=== PATIENT | male | born 1980 | race Caucasian/White ===

== ENCOUNTER 2017-04-02 13:53 | Inpatient (IN) | payer MEDICAID ==
[2017-04-02] MEDS ORDERED: Sulfamethoxazole/TMP 800/160mg Tab PO ONE (14:38)
[2017-04-02] MEDS ORDERED: Sulfamethoxazole/TMP 800/160mg Tab ONE (14:41)
--- NOTE | 2017-04-02 15:02 | ED Physician Chart ---
Chief Complaint/HPI - Patient Information Date Seen:: 04/02/17 Time Seen:: 14:00 Chief Complaint:: LEFT FOREARM ABSCESS History of Present Illness:: THIS IS A 36 YO MALE WHO IS CONCERNED ABOUT AN ABSCESS ON HIS LEFT FOREARM THAT STARTED TWO DAYS AGO. HE DENIES ALL OTHER MEDICAL PROBLEMS. HE ADMITS TO THC ABUSE. HE DENIES FEVER AND VOMITING. Allergies:: Allergies Allergy/AdvReac Type Severity Reaction Status Date / Time No Known Allergies Allergy Verified 04/02/17 13:57 Vitals:: Vital Signs - 8 hr 04/02/17 13:57 HR 95 RR 16 BP 147/93 O2 Sat % 99 Historian:: Patient Review:: Nurse's Note Reviewed Review of Systems - Review of Systems General/Constitutional: No fever, No chills, No weight loss, No weakness, No diaphoresis, No edema, No loss of appetite Skin: Skin lesions (THERE IS AN ABSCESS ON THE LEFT FOREARM), No rash, No bruising Head: No headache, No light-headedness Eyes: No loss of vision, No pain, No diplopia ENT: No earache, No nasal drainage, No sore throat, No tinnitus Neck: No neck pain, No swelling, No thyromegaly, No stiffness, No mass noted Cardio Vascular: No chest pain, No palpitations, No PND, No orthopnea, No edema Pulmonary: No SOB, No cough, No sputum, No wheezing GI: No nausea, No vomiting, No diarrhea, No pain, No melena, No hematochezia, No constipation, No hematemesis G/U: No dysuria, No frequency, No hematuria Musculoskeletal: No bone or joint pain, No back pain, No muscle pain Endocrine: No polyuria, No polydipsia Psychiatric: No prior psych history, No depression, No anxiety, No suicidal ideation Hematopoietic: No bruising, No lymphadenopathy Allergic/Immuno: No urticaria, No angioedema Neurological: No syncope, No focal symptoms, No weakness, No paresthesia, No headache, No seizure, No dizziness, No confusion, No vertigo Past Medical History - Past Medical History Obtainable: Yes Past Medical History: No significant medical hx Family History: None Social History: Smoker, No Alcohol, Illicit Drug Use Surgical History: other (SPEENECTOMY) Physical Exam - Physical Examination General/Constitutional: Awake, Well-developed, well-nourished, Alert, No distress, GCS 15, Non-toxic appearing, Ambulatory Head: Atraumatic Eyes: Lids, conjuctiva normal, PERRL, EOMI Skin: No rash, No ecchymosis, Well hydrated, No lymphadenopathy Other Skin comments:: THERE IS A 6 CM RED, TENDER,WARM AND SWOLLEN AREA OF THE LEFT FOREARM. ENMT: External ears, nose nl, Nasal exam nl, Lips, teeth, gums nl Neck: Nontender, Full ROM w/o pain, No JVD, No nuchal rigidity, No bruit, No mass, No stridor Respiratory: Nl effort/Exclusion, Clear to Auscultation, No Wheeze/Rhonchi/Rales Cardio Vascular: RRR, No murmur, gallop, rubs, NL S1 S2 GI: No tenderness/rebounding/guarding, No organomegaly, No hernia, Normal BS's, Nondistended, No mass/bruits, No McBurney tenderness : No CVA tenderness Extremities: No tenderness or effusion, Full ROM, normal strength in all extremities, No edema, Normal digits & nails Neuro/Psych: Alert/oriented, DTR's symmetric, Normal sensory exam, Normal motor strength, Judgement/insight normal, Mood normal, Normal gait, No focal deficits Misc: normal gait, Normal back, No paraspinal tenderness Labs/Radiology/EKG Results - Lab Results Results: Abnormal Lab Results 04/02/17 04/02/17 04/02/17 15:07 15:07 15:07 WBC 26.0 H* RBC 4.96 Hgb 15.3 Hct 46.1 MCV 92.8 MCH 30.9 H MCHC Differential 33.2 RDW 14.0 Plt Count 489 H MPV 7.8 Neutrophils (Manual) 83 H Lymphocytes 11 L Monocytes 6 Platelet Estimate INCREASED PLATELETS Platelet Morphology NORMAL RBC Morph Micro Appear NORMAL Sodium 134 L Potassium 3.8 Chloride 103 Carbon Dioxide 23.1 Anion Gap 11.7 BUN 7 Creatinine 0.8 Est GFR ( Amer) > 60.0 Est GFR (Non-Af Amer) > 60.0 BUN/Creatinine Ratio 8.8 Glucose 112 H Calcium 9.4 Total Bilirubin 0.8 AST 18 ALT 12 Alkaline Phosphatase 87 Troponin I 0.04 Total Protein 7.1 Albumin 4.3 Globulin 2.8 Albumin/Globulin Ratio 1.5 - EKG Interpretations EKG Time:: 15:48 Rate & Rhythm: RATE= 98 SINUS [place]: RIGHT Assessment - Assessment General Assessment: ABSCESS OF THE LEFT FOREARM ED Septic Shock - . Is Septic Shock (SBP<90, OR Lactate>4 mmol\L) present?: No - <6hrs of presentation: Vital Signs: Vital Signs - 8 hr 04/02/17 13:57 HR 95 RR 16 BP 147/93 O2 Sat % 99 Reassessment (Disposition) - Reassessment Reassessment Condition:: Improved - Diagnosis Diagnosis:: ABSCESS OF THE LEFT FOREARM - Patient Disposition Discharge/Transfer:: Acute Care w/in this hosp Admitting Medical Physician:: Alen Munoz Condition at Disposition:: Improved ED Discharge Plan - Patient Disposition Admit/Discharge/Transfer: Acute Care w/in this hosp Condition at Disposition: Improved
[2017-04-02 15:17] LABS: HEMATOCRIT 46.1 % (39.0-49.0); HEMOGLOBIN 15.3 gm/dL (13.2-17.3); MEAN CELL VOLUME 92.8 fl (80-99); MEAN CORPUSCULAR HEMOGLOBIN 30.9 pg (26.0-30.0); MEAN CORPUSCULAR HGB CONC 33.2 pg (28.0-36.0); MEAN PLATELET VOLUME 7.8 fl; PLATELET COUNT 489 Th/cmm (150-400); RED BLOOD COUNT 4.96 Mil/cmm (4.30-5.70)
[2017-04-02 15:33] LABS: ALB/GLOB RATIO 1.5 (1.0-1.8); ALKALINE PHOSPHATASE 87 U/L (34-104); ANION GAP 11.7 (7.0-16.0); BILIRUBIN,TOTAL 0.8 mg/dL (0.3-1.0); BUN - UREA NITROGEN 7 mg/dL (7-25); BUN/CREATININE RATIO 8.8; CALCIUM SERUM 9.4 mg/dL (8.6-10.3); CARBON DIOXIDE 23.1 mEq/L (21.0-31.0); CHLORIDE 103 mEq/L (98-107); CREATININE - SERUM 0.8 mg/dL (0.7-1.3); GLUCOSE 112 mg/dL (70-105); POTASSIUM SERUM 3.8 mEq/L (3.5-5.1); SGOT 18 U/L (13-39); SGPT/ALT 12 U/L (7-52); SODIUM SERUM 134 mEq/L (136-145)
[2017-04-02 15:34] LABS: NEUTROPHILS 83 % (40-80); PLATELET ESTIMATE INCREASED PLATELETS (NORMAL); PLATELET MORPHOLOGY NORMAL (NORMAL); TOTAL CELLS COUNTED 100
[2017-04-02] MEDS ORDERED: Sodium Chloride 0.9% 1,000 ML IV ONE (15:42)
[2017-04-02 16:17] LABS: URINE BILIRUBIN NEGATIVE (NEGATIVE); URINE BLOOD NEGATIVE (NEGATIVE); URINE GLUCOSE (UA) NEGATIVE (NEGATIVE); URINE KETONE NEGATIVE (NEGATIVE); URINE PH 6.5 (4.6 - 8.0); URINE PROTEIN NEGATIVE (NEGATIVE); URINE UROBILINOGEN 0.2 E.U./dL (0.2 - 1.0)
[2017-04-02 16:26] LABS: URINE COLOR YELLOW
[2017-04-02 16:29] LABS: AMPHETAMINE URINE POSITIVE (NEGATIVE); BARBITURATES URINE NEGATIVE (NEGATIVE); METHADONE URINE NEGATIVE (NEGATIVE)
[2017-04-02 16:35] LABS: URINE BACTERIA NONE SEEN /hpf (NONE SEEN); URINE EPITHELIAL CELLS NONE SEEN /lpf (FEW); URINE RBC NONE SEEN /hpf (0-5); URINE WBC NONE SEEN /hpf (0-5)
[2017-04-02] MEDS ORDERED: Acetaminophen 500 MG TAB ONE (16:44)
[2017-04-02] MEDS ORDERED: Acetaminophen 500 MG TAB PO ONE (16:47)
[2017-04-02] MEDS ORDERED: Hydrocodone/APAP 5mg/325mg Tab PO PRN (19:40)
[2017-04-02] MEDS ORDERED: Maalox 30 mL Cup PO PRN (19:40)
[2017-04-02] MEDS ORDERED: Magnesium Hydroxide (MOM) 30 mL UDC PO PRN (19:40)
[2017-04-03 06:10] LABS: HEMATOCRIT 43.9 % (39.0-49.0); HEMOGLOBIN 14.9 gm/dL (13.2-17.3); MEAN CELL VOLUME 92.6 fl (80-99); MEAN CORPUSCULAR HEMOGLOBIN 31.4 pg (26.0-30.0); MEAN CORPUSCULAR HGB CONC 33.9 pg (28.0-36.0); MEAN PLATELET VOLUME 8.3 fl; NEUTROPHILE ABSOLUTE 39.2 Th/cmm (1.8-8.0); PLATELET COUNT 495 Th/cmm (150-400); RED BLOOD COUNT 4.74 Mil/cmm (4.30-5.70); RED CELL DISTRIBUTION WIDTH 13.8 % (11.5-20.0)
[2017-04-03 06:39] LABS: ANION GAP 11.3 (7.0-16.0); BUN - UREA NITROGEN 10 mg/dL (7-25); BUN/CREATININE RATIO 12.5; CARBON DIOXIDE 24.8 mEq/L (21.0-31.0); CHLORIDE 102 mEq/L (98-107); CREATININE - SERUM 0.8 mg/dL (0.7-1.3); GLUCOSE 114 mg/dL (70-105); POTASSIUM SERUM 4.1 mEq/L (3.5-5.1); SODIUM SERUM 134 mEq/L (136-145)
[2017-04-03 07:54] LABS: WHITE BLOOD COUNT 46.2 Th/cmm (4.8-10.8)
[2017-04-03 08:27] LABS: HEMATOCRIT 46.5 % (39.0-49.0); HEMOGLOBIN 15.7 gm/dL (13.2-17.3); MEAN CELL VOLUME 93.6 fl (80-99); MEAN CORPUSCULAR HEMOGLOBIN 31.5 pg (26.0-30.0); MEAN CORPUSCULAR HGB CONC 33.7 pg (28.0-36.0); MEAN PLATELET VOLUME 7.9 fl; NEUTROPHILE ABSOLUTE 38.1 Th/cmm (1.8-8.0); PLATELET COUNT 485 Th/cmm (150-400); RED BLOOD COUNT 4.97 Mil/cmm (4.30-5.70)
[2017-04-03 08:36] LABS: BAND NEUTROPHILE 5 % (0-10); NEUTROPHILS 83 % (40-80); TOTAL CELLS COUNTED 100
[2017-04-03 08:37] LABS: EOSINOPHIL 1 % (0-5)
[2017-04-03 08:56] LABS: WHITE BLOOD COUNT 45.2 Th/cmm (4.8-10.8)
[2017-04-03 09:13] LABS: NEUTROPHILS 78 % (40-80); TOTAL CELLS COUNTED 100
[2017-04-03 09:14] LABS: BAND NEUTROPHILE 7 % (0-10)
--- NOTE | 2017-04-03 10:25 | Diagnostic Imaging Report ---
Portable chest x-ray History: Cough Allowing for portable technique the heart size is normal. No focal pulmonary parenchymal processes. No hilar or mediastinal abnormalities. Impression: No acute abnormalities.
[2017-04-03] MEDS: D5-0.45NS 1,000 ML IV SCH (11:53)
--- NOTE | 2017-04-03 12:48 | Diagnostic Imaging Report ---
Left elbow (3 views) No definite acute bony abnormalities. No fractures. Joint spaces appear normal. There is partial visualization of an orthopedic fixation plate within the distal shaft of the radius. IMPRESSION: 1. No acute focal bony abnormalities 2. Surgical changes within the distal radial shaft
--- NOTE | 2017-04-03 13:00 | History & Physical ---
ADMIT DATE: 04/02/2017 CHIEF COMPLAINT: Left forearm abscess. HISTORY OF PRESENT ILLNESS: The patient is 36-year-old white male who presented to ER complaining of abscess on left forearm that started 2 days ago. The patient denies other complaints. The patient does admit to marijuana abuse. ALLERGIES: No known allergies. MEDICATIONS: See medication reconciliation form. PAST MEDICAL HISTORY: Marijuana abuse. PAST SURGICAL HISTORY: ____. SOCIAL HISTORY: Positive tobacco use, positive marijuana abuse. Denies alcohol or IV drug use. REVIEW OF SYSTEMS: See history of present illness. PHYSICAL EXAMINATION: GENERAL: The patient is awake, alert, nontoxic in appearance. VITAL SIGNS: On admission, temperature is 101.1, pulse of 101, blood pressure was 147/99, respirations 18, and O2 sat 96% on room air. HEENT: Normocephalic, atraumatic. Extraocular movements are intact. Pupils are PERRLA. Oropharynx is clear. NECK: Supple, no thyromegaly. CARDIOVASCULAR: S1, S2, tachycardic. RESPIRATORY: Clear. No wheezes or rhonchi. GASTROINTESTINAL: Soft, nontender, nondisplaced. GENITOURINARY: No CVA tenderness, no suprapubic tenderness. BACK: No midline tenderness. EXTREMITIES: Equal pulses bilaterally. No cyanosis or edema. SKIN: The patient has an abscess present on his left forearm, which is 6 cm in size, red, tender, warm, and swollen. PSYCHIATRIC: Negative. NEUROLOGIC: Cranial nerves intact. Extraocular movements are intact. Sensation intact. Neurovascular is intact. Bilateral upper and lower muscles grossly normal. LABORATORY DATA: Hematology: WBC 26, hemoglobin is 15.3, hematocrit 46.1, platelet count of 489, 82% neutrophils, 11% lymphocytes. Chemistry: Sodium 134, potassium 3.8, chloride 103, bicarbonate 23, anion gap 11, BUN 7, creatinine 0.8, GFR is more than 60. Glucose 112, lactic acid 2.22, calcium 9.4, total bili 0.8, AST is 18, ALT is 12, alkaline phosphatase 87. Troponin 0.04, total protein 7.1, albumin 4.3, globulin 2.8, TSH is 2.66. Urinalysis negative. Urine drug screen is positive for amphetamines, methamphetamines and cannabinoids. RPR, nonreactive. Microbiology culture results pending. RADIOLOGY: Chest x-ray from 04/03 shows no acute abnormalities. IMPRESSION: 1. Sepsis. 2. Left forearm cellulitis. 3. History of splenectomy. 4. Leukocytosis. 5. Thrombocytosis. 6. Hyponatremia. 7. Hyperglycemia. 8. Lactic acidosis. 9. Amphetamine abuse. 10. Methamphetamine abuse. 11. Cannabinoids abuse. PLAN: The patient admitted to medical/surgical unit, seen by Dr. Radha Munoz. Infectious Disease consultation, Dr. Dionicio Canales. We will obtain further labs and consultations as needed. JOB# [id number]
[2017-04-03] MEDS: Clindamycin 600mg/50mL 600 MG/50 ML BAG IV SCH ×2 (13:40→22:30)
--- NOTE | 2017-04-03 15:20 | General Progress Note ---
Subjective - Review of Systems Service Date: 04/03/17 Events since last encounter: inflamed, swollen left upper ext for 5 days due to spider bite??? (a month?) Plan: MRI, I and D Objective - Results Result Diagrams: 04/03/17 08:17 04/03/17 05:35 Recent Labs: Laboratory Last Values WBC 45.2 Th/cmm (4.8-10.8) H* 04/03/17 08:17 RBC 4.97 Mil/cmm (4.30-5.70) 04/03/17 08:17 Hgb 15.7 gm/dL (13.2-17.3) 04/03/17 08: Hct 46.5 % (39.0-49.0) 04/03/17 08: MCV 93.6 fl (80-99) 04/03/17 08:17 MCH 31.5 pg (26.0-30.0) H 04/03/17 08:17 MCHC Differential 33.7 pg (28.0-36.0) 04/03/17 08:17 RDW 14.0 % (11.5-20.0) 04/03/17 08:17 Plt Count 485 Th/cmm (150-400) H 04/03/17 08:17 MPV 7.9 fl 04/03/17 08:17 Band Neutrophils % 7 % (0-10) 04/03/17 08:17 Neutrophils (Manual) 78 % (40-80) 04/03/17 08:17 Lymphocytes 10 % (20-50) L 04/03/17 08:17 Monocytes 5 % (2-10) 04/03/17 08:17 Eosinophils 1 % (0-5) 04/03/17 05:35 Platelet Estimate INCREASED PLATELETS (NORMAL) 04/02/17 15:07 Platelet Morphology NORMAL (NORMAL) 04/02/17 15:07 RBC Morph Micro Appear NORMAL (NORMAL) 04/02/17 15:07 Sodium 134 mEq/L (136-145) L 04/03/17 05:35 Potassium 4.1 mEq/L (3.5-5.1) 04/03/17 05:35 Chloride 102 mEq/L (98-107) 04/03/17 05:35 Carbon Dioxide 24.8 mEq/L (21.0-31.0) 04/03/17 05:35 Anion Gap 11.3 (7.0-16.0) 04/03/17 05:35 BUN 10 mg/dL (7-25) 04/03/17 05:35 Creatinine 0.8 mg/dL (0.7-1.3) 04/03/17 05:35 Est GFR ( Amer) > 60.0 ml/min (>90) 04/03/17 05:35 Est GFR (Non-Af Amer) > 60.0 ml/min 04/03/17 05:35 BUN/Creatinine Ratio 12.5 04/03/17 05:35 Glucose 114 mg/dL (70-105) H 04/03/17 05:35 Whole Bld Lactic Acid 2.22 mmol/L (0.60-1.99) H* 04/02/17 17:41 Calcium 9.0 mg/dL (8.6-10.3) 04/03/17 05:35 Total Bilirubin 0.8 mg/dL (0.3-1.0) 04/02/17 15:07 AST 18 U/L (13-39) 04/02/17 15:07 ALT 12 U/L (7-52) 04/02/17 15:07 Alkaline Phosphatase 87 U/L (34-104) 04/02/17 15:07 Troponin I 0.04 ng/mL (0.01-0.05) 04/02/17 15:07 Total Protein 7.1 gm/dL (6.0-8.3) 04/02/17 15:07 Albumin 4.3 gm/dL (4.2-5.5) 04/02/17 15:07 Globulin 2.8 gm/dL 04/02/17 15:07 Albumin/Globulin Ratio 1.5 (1.0-1.8) 04/02/17 15:07 TSH 2.66 uIU/ml (0.34-5.60) 04/02/17 15:07 Urine Source CLEAN C 04/02/17 15:00 Urine Color YELLOW 04/02/17 15:00 Urine Clarity CLEAR (CLEAR) 04/02/17 15:00 Urine pH 6.5 (4.6 - 8.0) 04/02/17 15:00 Ur Specific [place] <= 1.005 (1.005-1.030) 04/02/17 15:00 Urine Protein NEGATIVE mg/dL (NEGATIVE) 04/02/17 15:00 Urine Glucose (UA) NEGATIVE mg/dL (NEGATIVE) 04/02/17 15:00 Urine Ketones NEGATIVE mg/dL (NEGATIVE) 04/02/17 15:00 Urine Blood NEGATIVE (NEGATIVE) 04/02/17 15:00 Urine Nitrate NEGATIVE (NEGATIVE) 04/02/17 15:00 Urine Bilirubin NEGATIVE (NEGATIVE) 04/02/17 15:00 Urine Urobilinogen 0.2 E.U./dL (0.2 - 1.0) 04/02/17 15:00 Ur Leukocyte Esterase NEGATIVE (NEGATIVE) 04/02/17 15:00 Urine RBC NONE SEEN /hpf (0-5) 04/02/17 15:00 Urine WBC NONE SEEN /hpf (0-5) 04/02/17 15:00 Ur Epithelial Cells NONE SEEN /lpf (FEW) 04/02/17 15:00 Urine Bacteria NONE SEEN /hpf (NONE SEEN) 04/02/17 15:00 Urine Opiates Screen NEGATIVE (NEGATIVE) 04/02/17 05:00 Urine Methadone Screen NEGATIVE (NEGATIVE) 04/02/17 05:00 Ur Barbiturates Screen NEGATIVE (NEGATIVE) 04/02/17 05:00 Ur Tricyclics Screen NEGATIVE (NEGATIVE) 04/02/17 05:00 Ur Phencyclidine Scrn NEGATIVE (NEGATIVE) 04/02/17 05:00 Amphetamines Screen POSITIVE (NEGATIVE) H 04/02/17 05:00 U Methamphetamines Scrn POSITIVE (NEGATIVE) H 04/02/17 05:00 U Benzodiazepines Scrn NEGATIVE (NEGATIVE) 04/02/17 05:00 U Cocaine Metab Screen NEGATIVE (NEGATIVE) 04/02/17 05:00 U Cannabinoids Screen POSITIVE (NEGATIVE) H 04/02/17 05:00 RPR NONREACTIVE (NONREACTIVE) 04/02/17 15:07 - Physical Exam Vitals and I&O: Vital Signs Temp 98.1 F 04/03/17 12:00 Pulse 93 04/03/17 12:00 Resp 18 04/03/17 12:00 BP 108/54 04/03/17 12:00 Pulse Ox 100 04/03/17 12:00 Intake & Output 04/02/17 04/03/17 04/03/17 18:59 06:59 18:59 Intake Total 1400 Balance 1400 Weight (lbs) 66.678 kg Intake: Intake, IV Amount 500 Vancomycin HCl 1 gm In 500 Sodium Chloride 0.9% 250 ml @ 165 mls/hr IV Q8H [facility] Rx#:[id number] Oral 400 Other 500 Other: # Voids 1 Active Medications: Current Medications Acetaminophen (Tylenol) 650 mg PO Q4H PRN PRN Reason: Pain or Fever >101 Stop: 06/01/17 18:14 Last Admin: 04/03/17 08:17 Dose: 650 mg Acetaminophen/Hydrocodone Bitart (Victor 10 Mg/325 Mg) 1 tab PO Q6H PRN PRN Reason: Pain (Severe) Stop: 06/01/17 19:39 Acetaminophen/Hydrocodone Bitart (Victor 5mg/325mg) 1 tab PO Q6H PRN PRN Reason: Moderate Pain Stop: 06/01/17 19:39 Al Hydrox/Mg Hydrox/Simethicone (Maalox) 30 ml PO Q6H PRN PRN Reason: Dyspepsia Stop: 06/01/17 19:39 Dextrose/Sodium Chloride (D5-0.45ns) 1,000 mls @ 100 mls/hr IV .Q10H ANH Stop: 06/01/17 18:15 Last Admin: 04/03/17 11:53 Dose: 100 mls/hr Cefepime HCl 1 gm/ Sodium (Chloride) 50 mls @ 100 mls/hr IV Q12H ANH Stop: 06/02/17 12:59 Clindamycin Phosphate (Cleocin Pb) 600 mg in 50 mls @ 100 mls/hr IV Q8H ANH Stop: 06/02/17 13:59 Last Admin: 04/03/17 13:40 Dose: 100 mls/hr Vancomycin HCl 1.25 gm/ Sodium (Chloride) 250 mls @ 165 mls/hr IV Q8H ANH Stop: 06/02/17 16:59 Lorazepam (Ativan) 1 mg PO Q6H PRN; Protocol PRN Reason: Anxiety/Agitation Stop: 06/01/17 19:39 Magnesium Hydroxide (Milk Of Magnesia) 30 ml PO HS PRN PRN Reason: Constipation Stop: 06/01/17 19:39 Miscellaneous (Vancomycin Iv Per Pharmacy) 1 ea MC PRN ANH Stop: 06/01/17 18:44 Ondansetron HCl (Zofran Odt) 4 mg PO Q6H PRN PRN Reason: Nausea / Vomiting Stop: 06/01/17 19:39
[2017-04-03] MEDS ORDERED: cefTRIAXone 1 GM in Sodium Chloride 0.9% 50 ML IV SCH (16:00)
[2017-04-03] MEDS: Cefepime 1 GM in Sodium Chloride 0.9% 50 ML IV SCH (16:09)
[2017-04-03] MEDS ORDERED: Probiotic Screen MC PRN (17:24)
--- NOTE | 2017-04-03 18:47 | Consultation ---
DATE OF CONSULTATION: 04/02/2017 PRIMARY CARE PHYSICIAN: Dr. Alen Munoz. This is a 36-year-old male who was brought to the Emergency Room with a complaint of extensive left arm swelling and cellulitis. HISTORY OF PRESENT ILLNESS: The patient has a history of IV drug abuse and had a puncture lisha on the left forearm. The patient developed extensive cellulitis for the last 3 days and decided to come to the Emergency where the patient was found to have sepsis, infectious, and admitted to the hospital. Infectious consultation was called, antibiotics adjusted, and examined as soon as possible. PAST MEDICAL HISTORY: Cannabis abuse, opioid abuse, smoker. FAMILY HISTORY: Negative splenectomy. ALLERGIES: No allergies. REVIEW OF SYSTEMS: A 14-point review of systems is negative except the above. PHYSICAL EXAMINATION: GENERAL: Alert, awake, not in distress. VITAL SIGNS: Temperature, maximum temperature is 102.2, pulse 75, respirations 18, blood pressure 112/75. HEENT: Mild pallor, no icterus or plaque. NECK: Supple. LUNGS: Breath sounds bilateral vesicular. CARDIOVASCULAR: ____. ABDOMEN: Soft, bowel sounds present. EXTREMITIES: Left upper extremities has a puncture wound on the left forearm, with proximal and surrounding extensive cellulitis, tenderness, and rash. Pulses are palpable over all extremities. LABORATORY DATA: White count 26, 000, hemoglobin is 15 grams, platelets are 489. Cultures are pending. Also chest x-ray shows clear lung calderon. DIAGNOSIS: Left upper extremity cellulitis secondary to IV drug abuse, And Cannabis abuse. PLAN: The patient is started on vancomycin, Maxipime, and Clindamycin. Supportive care. Rest of the care as ordered in CPOE. Thank you, Dr. Munoz, for this consultation. JOB# [id number]
[2017-04-04] MEDS: Cefepime 1 GM in Sodium Chloride 0.9% 50 ML IV SCH ×2 (01:49→13:20)
[2017-04-04] MEDS: Hydrocodone/APAP 10 mg/325 mg Tab PO PRN (05:20)
[2017-04-04] MEDS: Clindamycin 600mg/50mL 600 MG/50 ML BAG IV SCH ×3 (05:20→21:37)
[2017-04-04 06:20] LABS: HEMOGLOBIN 14.7 gm/dL (13.2-17.3)
[2017-04-04 06:22] LABS: HEMATOCRIT 44.1 % (39.0-49.0); MEAN CELL VOLUME 92.9 fl (80-99); MEAN CORPUSCULAR HGB CONC 33.3 pg (28.0-36.0); MEAN PLATELET VOLUME 8.2 fl; NEUTROPHILE ABSOLUTE 27.9 Th/cmm (1.8-8.0); PLATELET COUNT 484 Th/cmm (150-400); RED BLOOD COUNT 4.74 Mil/cmm (4.30-5.70); RED CELL DISTRIBUTION WIDTH 13.9 % (11.5-20.0)
[2017-04-04 07:15] LABS: ANION GAP 11.3 (7.0-16.0); BUN - UREA NITROGEN 8 mg/dL (7-25); BUN/CREATININE RATIO 11.4; CALCIUM SERUM 9.8 mg/dL (8.6-10.3); CARBON DIOXIDE 24.7 mEq/L (21.0-31.0); CHLORIDE 101 mEq/L (98-107); CREATININE - SERUM 0.7 mg/dL (0.7-1.3); GLUCOSE 98 mg/dL (70-105); SODIUM SERUM 133 mEq/L (136-145)
[2017-04-04 07:21] LABS: WHITE BLOOD COUNT 34.3 Th/cmm (4.8-10.8)
[2017-04-04 07:23] LABS: TOTAL CELLS COUNTED 100
[2017-04-04 07:24] LABS: BAND NEUTROPHILE 4 % (0-10); NEUTROPHILS 75 % (40-80)
[2017-04-04 07:25] LABS: EOSINOPHIL 3 % (0-5)
--- NOTE | 2017-04-04 08:04 | Diagnostic Imaging Report ---
Left upper extremity extremity DVT study HISTORY: Swelling, abscess COMPARISON: None Technique: Longitudinal and transverse sonographic images of the left upper extremity veins were obtained with doppler analysis. FINDINGS: There is patency of the left jugular, subclavian, axillary, brachial, basilic, and cephalic veins. Compressibility and augmentation is demonstrated with no evidence of DVT formation. IMPRESSION: No evidence of thrombus within the left upper extremity veins.
[2017-04-04] MEDS: Lactobacillus Rhamnosus 10 Billion CFU Capsule PO SCH (08:09)
--- NOTE | 2017-04-04 08:29 | Diagnostic Imaging Report ---
Left upper extremity arterial Doppler study HISTORY: Swelling COMPARISON: None Technique: Longitudinal and transverse sonographic images of the left upper extremity arteries were obtained with doppler analysis. FINDINGS: There is patency of the left subclavian axillary, brachial, radial, ulnar veins. Triphasic and biphasic flow is primarily demonstrated with mild chronic vascular disease noted. IMPRESSION: Mild atherosclerotic vascular disease of the left upper extremity. No evidence of hemodynamic significant stenosis.
[2017-04-04] MEDS ORDERED: Midazolam 1mg/ml 2 ml vial IV ONE (12:04)
[2017-04-04] MEDS ORDERED: fentaNYL Citrate 100 mcg/2mL Vial ONE (12:04)
[2017-04-04] MEDS: D5-0.45NS 1,000 ML IV SCH (13:19)
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
--- NOTE | 2017-04-04 14:46 | Operative Report ---
DATE OF SURGERY: 04/04/2017 PREOPERATIVE DIAGNOSES: 1. Abscess, left forearm. 2. Status post splenectomy. 3. History of drug use. POSTOPERATIVE DIAGNOSES: 1. Abscess, left forearm. 2. Status post splenectomy. 3. History of drug use. OPERATION DONE: 1. Incision and drainage of abscess, left forearm. 2. Placement of Palmer-Rendon drain. SURGEON: Alejandro Del Toro M.D. ANESTHESIA: MAC. ANESTHESIOLOGIST: Vamshi Desai M.D. ESTIMATED BLOOD LOSS: None. INDICATIONS FOR SURGERY: The patient who claimed he had spider bite 3 days got worse and 2 days later, required emergency admission. WBC is extremely high. Ultrasound including venous and arterial studies did not show any DVT and/or arterial deficit. Informed consent was discussed with the patient regarding possible indications, possible complications that might include additional incision and drainage, increase in infection that might involve the fascia and effect the circulation. So far, the patient's sensation and motion to the fingers appear to be normal. DETAILS OF PROCEDURE: The patient was given IV sedation. The left upper extremity was prepped with Betadine and draped. At the site of the bite, which was necrotic, incision was made. Thick purulent material was aspirated and cultures taken. Probe was inserted into the space to break down any loculations, following which a Palmer-Rendon drain was inserted and secured in place. The patient tolerated the procedure well. JOB# [id number] MTDD
[2017-04-05] MEDS: Cefepime 1 GM in Sodium Chloride 0.9% 50 ML IV SCH ×2 (00:22→12:41)
--- NOTE | 2017-04-05 04:12 | Admit Criteria Form ---
Admit Criteria Forms - Admit Criteria Diagnosis: SKIN AND WOUND CARE Clinical Indications for Inpatient Care (Place 'X' for any and all applicable criteria): Ongoing inpatient care may be indicated for skin complications with 1 or more of the following [ ]I. Hemodynamic Instability((2)(8)(9)(28)(42)(43)(44) [ ]II. Dehydration that is severe or persistent [ ]III. Severe pain requiring acute inpatient management [ ]IV. Inpatient treatment needed as indicated by 1 or more of the following: Pressure ulcer closure procedures [ ] i. Skin grafting(45) [ ]ii. Opthalmic surgical procedure (eg amniotic membrane grafting) [ ]iii. Serial ocular examinations [ ]iv. Wound debridement [ ]v. Dressing change under general anesthesia [ ]vi. Diverting colostomy [ ]vii. Intravenous immunosuppressant therapy [ ]V. Significant burn as indicated by 1 or more of the following [ ]i. Full thickness burn greater than 10% of body surface area [ ]ii. Any burn greater than 15% of body surface area [ ]iii. Serious burn of hand, foot, genitals, face or joint [ ]iv. Burn accompanied by other significant medical problems or injuries (eg altered mental [ ]v. status, arrhythmia, inability to maintain oral hydration, significant wound) [ ]vi. Serious chemical burn [ ]vii. High voltage (e.g. 1000 volts or more) electrical burn [ ]viii. Circumferential burn [X ] . Skin infection requiring inpatient care as indicated by ALL of the following: [X ]a) Infection suspected as indicated by 1 or more of the following: [ ] i. Excessive drainage [X ]ii. Pus [ ]iii. Increased redness [ ]iv. Foul Odor [ ]v. Fever [X ]b) Clinically significant infection as indicated by 1 or more of the following: [ ]i. Vital signs abnormality [ ]ii. Persistantly high temperatures greater than 103.1 degrees F (39.5degrees C)(Oral) [X ]iii. Unexplained metabolic acidosis (eg lactic acidosis) [ ]iv. Evidence of end organ dysfunction (eg rising creatinine, myocardial ischemia, liver function tests) [ ]v. Hypoxemia [ ]vi. Tachypnea [ ]vii. Altered mental status [ ]viii. Dehydration that is severe or persistent Extended stay beyond goal length of stay for primary condition may be needed until ALL of the following are present(1)(2)(13)(21)(27): [ ]a) Hemodynamic instability [ ]b) Volume status acceptable [ ]c) Mental status at baseline [ ]d) Tissue necrosis absent or treatment plan manageable at lower level of care [ ]e) Fever absent or temperature as expected for disease process and acceptable for next level of care [ ]f) Hypoxemia present [ ]g) Tachypnea present [ ]h) Fistulas, tunneling, or underlying deep tissue infection absent or treated [ ]i) Purulence and tissue breakdown absent or improved [ ]j) Ulcer surgical repair absent or healing without complications [ ]k) Wound infection absent or manageable at lower level of care [ ]l) Comorbidities absent or manageable at lower level of care The original [facility] [employer] content created by [facility] has been revised. The portions of the content which have been revised are identified through the use of italic text or in bold, and [facility] has neither reviewed nor approved the modified material. All other unmodified content is copyright [facility]. Please see references footnoted in the original [facility] edition 2017 Admit Criteria Met?: Yes
[2017-04-05] MEDS: Hydrocodone/APAP 10 mg/325 mg Tab PO PRN (05:32)
[2017-04-05 06:17] LABS: HEMATOCRIT 43.2 % (39.0-49.0); HEMOGLOBIN 14.5 gm/dL (13.2-17.3); MEAN CELL VOLUME 93.1 fl (80-99); MEAN CORPUSCULAR HEMOGLOBIN 31.2 pg (26.0-30.0); MEAN CORPUSCULAR HGB CONC 33.5 pg (28.0-36.0); MEAN PLATELET VOLUME 8.1 fl; PLATELET COUNT 534 Th/cmm (150-400); RED BLOOD COUNT 4.64 Mil/cmm (4.30-5.70); RED CELL DISTRIBUTION WIDTH 13.6 % (11.5-20.0)
[2017-04-05 06:27] LABS: WHITE BLOOD COUNT 18.2 Th/cmm (4.8-10.8)
[2017-04-05 06:33] LABS: ALB/GLOB RATIO 1.2 (1.0-1.8); ALKALINE PHOSPHATASE 87 U/L (34-104); ANION GAP 9.4 (7.0-16.0); BILIRUBIN,TOTAL 0.5 mg/dL (0.3-1.0); BUN - UREA NITROGEN 11 mg/dL (7-25); BUN/CREATININE RATIO 18.3; CALCIUM SERUM 9.4 mg/dL (8.6-10.3); CARBON DIOXIDE 27.3 mEq/L (21.0-31.0); CHLORIDE 101 mEq/L (98-107); CREATININE - SERUM 0.6 mg/dL (0.7-1.3); GLUCOSE 88 mg/dL (70-105); POTASSIUM SERUM 3.7 mEq/L (3.5-5.1); SGOT 30 U/L (13-39); SGPT/ALT 33 U/L (7-52); SODIUM SERUM 134 mEq/L (136-145)
[2017-04-05 06:56] LABS: BAND NEUTROPHILE 7 % (0-10); EOSINOPHIL 1 % (0-5); NEUTROPHILS 66 % (40-80); TOTAL CELLS COUNTED 100
[2017-04-05] MEDS: Clindamycin 600mg/50mL 600 MG/50 ML BAG IV SCH ×3 (07:00→21:42)
[2017-04-05 07:34] LABS: % EOSINOPHILS 4.7 % (0.0-5.0); % LYMPHOCYTES 15.8 % (20.0-50.0); % NEUTROPHILS 69.5 % (40.0-80.0); NEUTROPHILE ABSOLUTE 12.8 Th/cmm (1.8-8.0)
--- NOTE | 2017-04-05 09:15 | General Progress Note ---
Subjective - Review of Systems Service Date: 04/05/17 Events since last encounter: WBC down, swelling upper arm down pain and tenderness is less minimal YUMIKO drainage patient to go home with drain Objective - Results Result Diagrams: 04/05/17 05:54 04/05/17 05:54 Recent Labs: Laboratory Last Values WBC 18.2 Th/cmm (4.8-10.8) H D 04/05/17 05:54 RBC 4.64 Mil/cmm (4.30-5.70) 04/05/17 05:54 Hgb 14.5 gm/dL (13.2-17.3) 04/05/17 05:54 Hct 43.2 % (39.0-49.0) 04/05/17 05:54 MCV 93.1 fl (80-99) 04/05/17 05:54 MCH 31.2 pg (26.0-30.0) H 04/05/17 05:54 MCHC Differential 33.5 pg (28.0-36.0) 04/05/17 05:54 RDW 13.6 % (11.5-20.0) 04/05/17 05:54 Plt Count 534 Th/cmm (150-400) H 04/05/17 05:54 MPV 8.1 fl 04/05/17 05:54 Neutrophils % 69.5 % (40.0-80.0) 04/05/17 05:54 Band Neutrophils % 7 % (0-10) 04/05/17 05:54 Lymphocytes % 15.8 % (20.0-50.0) L 04/05/17 05:54 Monocytes % 10.0 % (2.0-10.0) 04/05/17 05:54 Eosinophils % 4.7 % (0.0-5.0) 04/05/17 05:54 Basophils % 0.0 % (0.0-2.0) 04/05/17 05:54 Neutrophils (Manual) 66 % (40-80) 04/05/17 05:54 Lymphocytes 23 % (20-50) 04/05/17 05:54 Monocytes 4 % (2-10) 04/05/17 05:54 Eosinophils 1 % (0-5) 04/05/17 05:54 Platelet Estimate INCREASED PLATELETS (NORMAL) 04/02/17 15:07 Platelet Morphology NORMAL (NORMAL) 04/02/17 15:07 RBC Morph Micro Appear NORMAL (NORMAL) 04/02/17 15:07 ESR 21 mm/hr (0-20) H 04/04/17 05:49 Sodium 134 mEq/L (136-145) L 04/05/17 05:54 Potassium 3.7 mEq/L (3.5-5.1) 04/05/17 05:54 Chloride 101 mEq/L (98-107) 04/05/17 05:54 Carbon Dioxide 27.3 mEq/L (21.0-31.0) 04/05/17 05:54 Anion Gap 9.4 (7.0-16.0) 04/05/17 05:54 BUN 11 mg/dL (7-25) 04/05/17 05:54 Creatinine 0.6 mg/dL (0.7-1.3) L 04/05/17 05:54 Est GFR ( Amer) > 60.0 ml/min (>90) 04/05/17 05:54 Est GFR (Non-Af Amer) > 60.0 ml/min 04/05/17 05:54 BUN/Creatinine Ratio 18.3 04/05/17 05:54 Glucose 88 mg/dL (70-105) 04/05/17 05:54 Whole Bld Lactic Acid 2.22 mmol/L (0.60-1.99) H* 04/02/17 17:41 Calcium 9.4 mg/dL (8.6-10.3) 04/05/17 05:54 Total Bilirubin 0.5 mg/dL (0.3-1.0) 04/05/17 05:54 AST 30 U/L (13-39) 04/05/17 05:54 ALT 33 U/L (7-52) 04/05/17 05:54 Alkaline Phosphatase 87 U/L (34-104) 04/05/17 05:54 Troponin I 0.04 ng/mL (0.01-0.05) 04/02/17 15:07 C-Reactive Protein 24.9 mg/dL (0.0-0.9) H 04/04/17 05:49 Total Protein 6.6 gm/dL (6.0-8.3) 04/05/17 05:54 Albumin 3.6 gm/dL (4.2-5.5) L 04/05/17 05:54 Globulin 3.0 gm/dL 04/05/17 05:54 Albumin/Globulin Ratio 1.2 (1.0-1.8) 04/05/17 05:54 TSH 2.66 uIU/ml (0.34-5.60) 04/02/17 15:07 Urine Source CLEAN C 04/02/17 15:00 Urine Color YELLOW 04/02/17 15:00 Urine Clarity CLEAR (CLEAR) 04/02/17 15:00 Urine pH 6.5 (4.6 - 8.0) 04/02/17 15:00 Ur Specific [place] <= 1.005 (1.005-1.030) 04/02/17 15:00 Urine Protein NEGATIVE mg/dL (NEGATIVE) 04/02/17 15:00 Urine Glucose (UA) NEGATIVE mg/dL (NEGATIVE) 04/02/17 15:00 Urine Ketones NEGATIVE mg/dL (NEGATIVE) 04/02/17 15:00 Urine Blood NEGATIVE (NEGATIVE) 04/02/17 15:00 Urine Nitrate NEGATIVE (NEGATIVE) 04/02/17 15:00 Urine Bilirubin NEGATIVE (NEGATIVE) 04/02/17 15:00 Urine Urobilinogen 0.2 E.U./dL (0.2 - 1.0) 04/02/17 15:00 Ur Leukocyte Esterase NEGATIVE (NEGATIVE) 04/02/17 15:00 Urine RBC NONE SEEN /hpf (0-5) 04/02/17 15:00 Urine WBC NONE SEEN /hpf (0-5) 04/02/17 15:00 Ur Epithelial Cells NONE SEEN /lpf (FEW) 04/02/17 15:00 Urine Bacteria NONE SEEN /hpf (NONE SEEN) 04/02/17 15:00 Vancomycin Trough 16.8 ug/mL (10-20) 04/04/17 16:19 Urine Opiates Screen NEGATIVE (NEGATIVE) 04/02/17 05:00 Urine Methadone Screen NEGATIVE (NEGATIVE) 04/02/17 05:00 Ur Barbiturates Screen NEGATIVE (NEGATIVE) 04/02/17 05:00 Ur Tricyclics Screen NEGATIVE (NEGATIVE) 04/02/17 05:00 Ur Phencyclidine Scrn NEGATIVE (NEGATIVE) 04/02/17 05:00 Amphetamines Screen POSITIVE (NEGATIVE) H 04/02/17 05:00 U Methamphetamines Scrn POSITIVE (NEGATIVE) H 04/02/17 05:00 U Benzodiazepines Scrn NEGATIVE (NEGATIVE) 04/02/17 05:00 U Cocaine Metab Screen NEGATIVE (NEGATIVE) 04/02/17 05:00 U Cannabinoids Screen POSITIVE (NEGATIVE) H 04/02/17 05:00 RPR NONREACTIVE (NONREACTIVE) 04/02/17 15:07 - Physical Exam Vitals and I&O: Vital Signs Temp 97.6 F 04/05/17 04:00 Pulse 68 04/05/17 04:00 Resp 18 04/05/17 04:00 BP 105/67 04/05/17 04:00 Pulse Ox 97 04/05/17 04:00 Intake & Output 04/04/17 04/05/17 04/05/17 18:59 06:59 18:59 Intake Total 600 2450 Output Total 5 425 Balance 595 2025 Weight (lbs) 66.769 kg Intake: Intake, IV Amount 600 350 Cefepime 1 gm In Sodium 50 50 Chloride 0.9% 50 ml @ 100 mls/hr IV Q12H [facility] Rx#: [id number] Clindamycin 600mg/50mL 50 50 600 mg In 50 ml @ 100 mls /hr IV Q8H [facility] Rx#: [id number] Vancomycin HCl 1.25 gm In 500 250 Sodium Chloride 0.9% 250 ml @ 165 mls/hr IV Q8H [facility] Rx#:[id number] Oral 2100 Output: Drainage 5 25 Left Arm 5 25 Urine 400 Other: # Voids 5 # Bowel Movements 0 Stool Characteristics Formed Brown Active Medications: Current Medications Acetaminophen (Tylenol) 650 mg PO Q4H PRN PRN Reason: Pain or Fever >101 Stop: 06/01/17 18:14 Last Admin: 04/03/17 15:47 Dose: 650 mg Acetaminophen/Hydrocodone Bitart ([place] 10 Mg/325 Mg) 1 tab PO Q6H PRN PRN Reason: Pain (Severe) Stop: 06/01/17 19:39 Last Admin: 04/05/17 05:32 Dose: 1 tab Acetaminophen/Hydrocodone Bitart ([place] 5mg/325mg) 1 tab PO Q6H PRN PRN Reason: Moderate Pain Stop: 06/01/17 19:39 Al Hydrox/Mg Hydrox/Simethicone (Maalox) 30 ml PO Q6H PRN PRN Reason: Dyspepsia Stop: 06/01/17 19:39 Dextrose/Sodium Chloride (D5-0.45ns) 1,000 mls @ 100 mls/hr IV .Q10H ANH Stop: 06/01/17 18:15 Last Admin: 04/04/17 13:19 Dose: 100 mls/hr Cefepime HCl 1 gm/ Sodium (Chloride) 50 mls @ 100 mls/hr IV Q12H ANH Stop: 06/02/17 12:59 Last Infusion: 04/05/17 02:14 Dose: Infused Clindamycin Phosphate (Cleocin Pb) 600 mg in 50 mls @ 100 mls/hr IV Q8H ANH Stop: 06/02/17 13:59 Last Admin: 04/05/17 07:00 Dose: 100 mls/hr Vancomycin HCl 1.25 gm/ Sodium (Chloride) 250 mls @ 165 mls/hr IV Q8H ANH Stop: 06/02/17 16:59 Last Infusion: 04/05/17 02:14 Dose: Infused Lactobacillus Rhamnosus (Culturelle) 1 each PO DAILY ANH Stop: 06/03/17 08:59 Last Admin: 04/04/17 08:09 Dose: Not Given Lorazepam (Ativan) 1 mg PO Q6H PRN; Protocol PRN Reason: Anxiety/Agitation Stop: 06/01/17 19:39 Magnesium Hydroxide (Milk Of Magnesia) 30 ml PO HS PRN PRN Reason: Constipation Stop: 06/01/17 19:39 Miscellaneous (Vancomycin Iv Per Pharmacy) 1 ea MC PRN ANH Stop: 06/01/17 18:44 Miscellaneous (Probiotic Screen) 1 ea PRN PRN PRN Reason: PROTOCOL Stop: 06/02/17 17:23 Ondansetron HCl (Zofran Odt) 4 mg PO Q6H PRN PRN Reason: Nausea / Vomiting Stop: 06/01/17 19:39 - Procedures Procedures: Procedures Procedure Code Date DRAINAGE OF LEFT LOWER ARM, OPEN APPROACH [id number] 04/02/17 DRAINAGE OF SKIN ABSCESS 60955 04/02/17 Nutritional Asmnt/Malnutr-PDOC - Dietary Evaluation Malnutrition Findings (Please click <Entered> for more info): Nutritional Asmnt/Malnutrition Start: 04/04/17 13: 05 Text: Status: Complete Freq: Document 04/04/17 13:06 MARLENE (Rec: 04/04/17 13:25 [email or web address]) Nutritional Asmnt/Malnutrition Patient General Information Nutritional Screening Consult Diagnosis Sepsis, left forearm cellulitis, leukocytosis, thrombocytosis Pertinent Medical Hx/Surgical Hx Splenectomy, amphetamine abuse , methamphetamine abuse, cannabinoid abuse Subjective Information 36 year old male from home. Spoke to pt sitting outside in courtyard smoking a cigarrete . No nutritional concerns at this time. Pt was NPO during visit for surgery. Pt report UBW 155-165lb, has always been small frame, no recent weight changes, good appetite. Avg PO itnake 100% of meals yesterday. Teeth intact. Ambulatory. Current Diet Order/ Nutrition Support Regular Pertinent Medications D5-0.45ns, Culturelle, MOM, Vancomycin, Zofran Pertinent Labs Reviewed. Nutritional Hx/Data Height 1.85 m Height (Calculated Centimeters) 185.4 Current Weight (lbs) 66.678 kg Weight (Calculated Kilograms) 66.7 Weight (Calculated Grams) 69626.1 [place] Body Weight 184 Recent Weight Change No Weight Status Approriate GI Symptoms Skin Integrity/Comment: Bin 23. Wound care 04/03: right forearm abscess, left erythematous and solitario Current %PO Good (75-100%) Estimated Nutritional Goals BEE in Kcals: Using Current wt Calories/Kcals/Kg CBW 147lb/66.8kg Kcals Calculated 1670-2004kcal (25-30kcla/kg) Protein: Using Current wt Protein Calculated 53-67g (0.8-1g/kg) Fluid: ml 1670-2004ml (1ml/kcal) Nutritional Problem 1. Problem Problem No nutritional problem at this time. Intervention/Recommendation Comments 1. Continue with current diet order. Avg PO intake is adequate. Expected Outcomes/Goals Expected Outcomes/Goals 1. PO intake to meet at least 75% of estimated nutritional needs.
[2017-04-05] MEDS: Lactobacillus Rhamnosus 10 Billion CFU Capsule PO SCH (09:48)
[2017-04-05] MEDS: D5-0.45NS 1,000 ML IV SCH (12:43)
[2017-04-06] MEDS: Cefepime 1 GM in Sodium Chloride 0.9% 50 ML IV SCH ×2 (01:03→13:06)
[2017-04-06] MEDS: Clindamycin 600mg/50mL 600 MG/50 ML BAG IV SCH ×2 (05:03→15:00)
[2017-04-06 07:32] LABS: % EOSINOPHILS 6.8 % (0.0-5.0); % LYMPHOCYTES 21.2 % (20.0-50.0); % MONOCYTES 8.7 % (2.0-10.0); % NEUTROPHILS 59.3 % (40.0-80.0); HEMATOCRIT 42.8 % (39.0-49.0); HEMOGLOBIN 14.1 gm/dL (13.2-17.3); MEAN CELL VOLUME 92.6 fl (80-99); MEAN CORPUSCULAR HEMOGLOBIN 30.6 pg (26.0-30.0); MEAN PLATELET VOLUME 7.7 fl; PLATELET COUNT 586 Th/cmm (150-400); RED BLOOD COUNT 4.62 Mil/cmm (4.30-5.70); RED CELL DISTRIBUTION WIDTH 13.7 % (11.5-20.0)
[2017-04-06 07:34] LABS: WHITE BLOOD COUNT 10.2 Th/cmm (4.8-10.8)
[2017-04-06 08:03] LABS: ANION GAP 8.7 (7.0-16.0); BUN - UREA NITROGEN 10 mg/dL (7-25); BUN/CREATININE RATIO 16.7; CALCIUM SERUM 9.3 mg/dL (8.6-10.3); CARBON DIOXIDE 29.3 mEq/L (21.0-31.0); CHLORIDE 103 mEq/L (98-107); CREATININE - SERUM 0.6 mg/dL (0.7-1.3); GLUCOSE 88 mg/dL (70-105); SODIUM SERUM 137 mEq/L (136-145)
[2017-04-06] MEDS: Lactobacillus Rhamnosus 10 Billion CFU Capsule PO SCH (08:22)
[2017-04-06] MEDS: Hydrocodone/APAP 10 mg/325 mg Tab PO PRN (08:22)
[2017-04-06] MEDS: D5-0.45NS 1,000 ML IV SCH (08:26)
--- NOTE | 2017-04-06 10:39 | Progress Notes ---
DATE: 04/05/2017 SUBJECTIVE: The patient is awake, alert. The patient is on IV antibiotics. The patient is scheduled for surgery on left forearm. OBJECTIVE: VITAL SIGNS: Temperature 99, pulse 93, blood pressure 133/75, respiratory rate 18, O2 sat 98% on room air. CARDIOVASCULAR: S1 and S2. RESPIRATORY: Clear. ABDOMEN: Soft. Positive bowel sounds. LABORATORY DATA: Hematology: WBC 34.3, hemoglobin 14.7, hematocrit 44.1, platelet count 484, ESR 21. Chemistries: Sodium 133, potassium 4.0, chloride 101, bicarbonate 24, anion gap 11, BUN 8, creatinine 0.7, GFR more than 60, glucose 98, calcium 9.8, C-reactive protein 24.9. Microbiology: Blood culture from 04/02/2017 pending. MRSA screen from 04/02/2017 negative. Left forearm wound culture from 04/02/2017 shows Staph aureus. Blood culture from 04/03/2017 shows no growth. Left arm abscess culture from 04/04/2017 pending. ASSESSMENT: 1. Sepsis. 2. Left forearm abscess secondary to Staph aureus. 3. Leukocytosis. 4. Thrombocytosis. 5. Hyponatremia. 6. Amphetamine abuse. 7. ____ abuse. 8. History of splenectomy. PLAN: Continue current medication. Obtain labs in a.m. The patient scheduled for surgery today. Further consult. JOB# [id number]
--- NOTE | 2017-04-06 13:19 | Progress Notes ---
DATE: 04/05/2017 SUBJECTIVE: The patient is awake and alert. The patient is on IV antibiotics. The patient underwent I and D of his forearm yesterday. OBJECTIVE: VITAL SIGNS: Temperature 97.6, pulse 68, blood pressure 105/57, respiratory rate 18, O2 sat 98% on room air. CARDIOVASCULAR: S1 and S2. RESPIRATORY: Clear. ABDOMEN: Soft. Positive bowel sounds. LABORATORY DATA: Hematology: WBC 18.2, hemoglobin 14.5, hematocrit 43.2, platelet count of 534. 15% lymphocytes. Chemistry: Sodium 134, potassium 3.7, chloride 101, bicarbonate 27, anion gap 9.4, BUN 11, creatinine 0.6. GFR is more than 60. Glucose of 88, calcium is 9.4. Total bilirubin 0.5, AST 30, ALT 33, alkaline phosphatase 87. Total protein 6.6, albumin 3.6, globulin 3.0. MICROBIOLOGY: Blood culture from 04/02/2017 shows no growth. MRSA screen from 04/02/2017 negative. Left forearm wound culture from 04/02/2017 shows Staphylococcus Aureus. ____ 04/02/2017 pending and left forearm wound culture from 04/04/2017 pending. RADIOLOGY: Ultrasound of left upper extremity shows mild atherosclerotic vascular disease, left upper extremity. No evidence of significant stenosis. Lower extremity shows no evidence of DVT. PLAN: Continue current medications and treatment. Obtain labs a.m. Awaiting culture results. Continue inpatient wound care. Further consults. JOB# [id number]
--- NOTE | 2017-04-06 17:17 | General Progress Note ---
Subjective - Review of Systems Service Date: 04/06/17 Events since last encounter: YUMIKO drainage 5 cc overnight and today 5 cc DC on antibiotics to see me in 1 week for removal of drain Objective - Results Result Diagrams: 04/06/17 07:20 04/06/17 07:20 Recent Labs: Laboratory Last Values WBC 10.2 Th/cmm (4.8-10.8) D 04/06/17 07:20 RBC 4.62 Mil/cmm (4.30-5.70) 04/06/17 07:20 Hgb 14.1 gm/dL (13.2-17.3) 04/06/17 07:20 Hct 42.8 % (39.0-49.0) 04/06/17 07:20 MCV 92.6 fl (80-99) 04/06/17 07:20 MCH 30.6 pg (26.0-30.0) H 04/06/17 07:20 MCHC Differential 33.0 pg (28.0-36.0) 04/06/17 07:20 RDW 13.7 % (11.5-20.0) 04/06/17 07:20 Plt Count 586 Th/cmm (150-400) H 04/06/17 07:20 MPV 7.7 fl 04/06/17 07:20 Neutrophils % 59.3 % (40.0-80.0) 04/06/17 07:20 Band Neutrophils % 7 % (0-10) 04/05/17 05:54 Lymphocytes % 21.2 % (20.0-50.0) 04/06/17 07:20 Monocytes % 8.7 % (2.0-10.0) 04/06/17 07:20 Eosinophils % 6.8 % (0.0-5.0) H 04/06/17 07:20 Basophils % 4.0 % (0.0-2.0) H 04/06/17 07:20 Neutrophils (Manual) 66 % (40-80) 04/05/17 05:54 Lymphocytes 23 % (20-50) 04/05/17 05:54 Monocytes 4 % (2-10) 04/05/17 05:54 Eosinophils 1 % (0-5) 04/05/17 05:54 Platelet Estimate INCREASED PLATELETS (NORMAL) 04/02/17 15:07 Platelet Morphology NORMAL (NORMAL) 04/02/17 15:07 RBC Morph Micro Appear NORMAL (NORMAL) 04/02/17 15:07 ESR 25 mm/hr (0-20) H 04/06/17 07:20 Sodium 137 mEq/L (136-145) 04/06/17 07:20 Potassium 4.0 mEq/L (3.5-5.1) 04/06/17 07:20 Chloride 103 mEq/L (98-107) 04/06/17 07:20 Carbon Dioxide 29.3 mEq/L (21.0-31.0) 04/06/17 07:20 Anion Gap 8.7 (7.0-16.0) 04/06/17 07:20 BUN 10 mg/dL (7-25) 04/06/17 07:20 Creatinine 0.6 mg/dL (0.7-1.3) L 04/06/17 07:20 Est GFR ( Amer) > 60.0 ml/min (>90) 04/06/17 07:20 Est GFR (Non-Af Amer) > 60.0 ml/min 04/06/17 07:20 BUN/Creatinine Ratio 16.7 04/06/17 07:20 Glucose 88 mg/dL (70-105) 04/06/17 07:20 Whole Bld Lactic Acid 2.22 mmol/L (0.60-1.99) H* 04/02/17 17:41 Calcium 9.3 mg/dL (8.6-10.3) 04/06/17 07:20 Total Bilirubin 0.5 mg/dL (0.3-1.0) 04/05/17 05:54 AST 30 U/L (13-39) 04/05/17 05:54 ALT 33 U/L (7-52) 04/05/17 05:54 Alkaline Phosphatase 87 U/L (34-104) 04/05/17 05:54 Troponin I 0.04 ng/mL (0.01-0.05) 04/02/17 15:07 C-Reactive Protein 24.9 mg/dL (0.0-0.9) H 04/04/17 05:49 Total Protein 6.6 gm/dL (6.0-8.3) 04/05/17 05:54 Albumin 3.6 gm/dL (4.2-5.5) L 04/05/17 05:54 Globulin 3.0 gm/dL 04/05/17 05:54 Albumin/Globulin Ratio 1.2 (1.0-1.8) 04/05/17 05:54 TSH 2.66 uIU/ml (0.34-5.60) 04/02/17 15:07 Urine Source CLEAN C 04/02/17 15:00 Urine Color YELLOW 04/02/17 15:00 Urine Clarity CLEAR (CLEAR) 04/02/17 15:00 Urine pH 6.5 (4.6 - 8.0) 04/02/17 15:00 Ur Specific [place] <= 1.005 (1.005-1.030) 04/02/17 15:00 Urine Protein NEGATIVE mg/dL (NEGATIVE) 04/02/17 15:00 Urine Glucose (UA) NEGATIVE mg/dL (NEGATIVE) 04/02/17 15:00 Urine Ketones NEGATIVE mg/dL (NEGATIVE) 04/02/17 15:00 Urine Blood NEGATIVE (NEGATIVE) 04/02/17 15:00 Urine Nitrate NEGATIVE (NEGATIVE) 04/02/17 15:00 Urine Bilirubin NEGATIVE (NEGATIVE) 04/02/17 15:00 Urine Urobilinogen 0.2 E.U./dL (0.2 - 1.0) 04/02/17 15:00 Ur Leukocyte Esterase NEGATIVE (NEGATIVE) 04/02/17 15:00 Urine RBC NONE SEEN /hpf (0-5) 04/02/17 15:00 Urine WBC NONE SEEN /hpf (0-5) 04/02/17 15:00 Ur Epithelial Cells NONE SEEN /lpf (FEW) 04/02/17 15:00 Urine Bacteria NONE SEEN /hpf (NONE SEEN) 04/02/17 15:00 Vancomycin Trough 16.8 ug/mL (10-20) 04/04/17 16:19 Urine Opiates Screen NEGATIVE (NEGATIVE) 04/02/17 05:00 Urine Methadone Screen NEGATIVE (NEGATIVE) 04/02/17 05:00 Ur Barbiturates Screen NEGATIVE (NEGATIVE) 04/02/17 05:00 Ur Tricyclics Screen NEGATIVE (NEGATIVE) 04/02/17 05:00 Ur Phencyclidine Scrn NEGATIVE (NEGATIVE) 04/02/17 05:00 Amphetamines Screen POSITIVE (NEGATIVE) H 04/02/17 05:00 U Methamphetamines Scrn POSITIVE (NEGATIVE) H 04/02/17 05:00 U Benzodiazepines Scrn NEGATIVE (NEGATIVE) 04/02/17 05:00 U Cocaine Metab Screen NEGATIVE (NEGATIVE) 04/02/17 05:00 U Cannabinoids Screen POSITIVE (NEGATIVE) H 04/02/17 05:00 RPR NONREACTIVE (NONREACTIVE) 04/02/17 15:07 - Physical Exam Vitals and I&O: Vital Signs Temp 98.8 F 04/06/17 13:59 Pulse 86 04/06/17 13:59 Resp 18 04/06/17 13:59 BP 130/60 04/06/17 13:59 Pulse Ox 98 04/06/17 13:59 Intake & Output 04/05/17 04/06/17 04/06/17 18:59 06:59 18:59 Intake Total 2150.00 1300 50 Output Total 4 Balance 2146.00 1300 50 Weight (lbs) 66.763 kg 64.592 kg 64.41 kg Intake: Intake, IV Amount 650.00 1100 50 Cefepime 1 gm In Sodium 50 50 Chloride 0.9% 50 ml @ 100 mls/hr IV Q12H [facility] Rx#: [id number] Clindamycin 600mg/50mL 100 50 50 600 mg In 50 ml @ 100 mls /hr IV Q8H [facility] Rx#: [id number] D5-0.45NS 1,000 ml @ 100 1000 mls/hr IV .Q10H [facility] Rx#: [id number] Vancomycin HCl 1.25 gm In 500.00 Sodium Chloride 0.9% 250 ml @ 165 mls/hr IV Q8H [facility] Rx#:[id number] Oral 1500 200 Output: Drainage 4 Left Arm 4 Other: # Voids 4 3 # Bowel Movements 0 0 Stool Characteristics Formed Formed Brown Brown Active Medications: Current Medications Acetaminophen (Tylenol) 650 mg PO Q4H PRN PRN Reason: Pain or Fever >101 Stop: 06/01/17 18:14 Last Admin: 04/03/17 15:47 Dose: 650 mg Acetaminophen/Hydrocodone Bitart ([place] 10 Mg/325 Mg) 1 tab PO Q6H PRN PRN Reason: Pain (Severe) Stop: 06/01/17 19:39 Last Admin: 04/06/17 08:22 Dose: 1 tab Acetaminophen/Hydrocodone Bitart ([place] 5mg/325mg) 1 tab PO Q6H PRN PRN Reason: Moderate Pain Stop: 06/01/17 19:39 Al Hydrox/Mg Hydrox/Simethicone (Maalox) 30 ml PO Q6H PRN PRN Reason: Dyspepsia Stop: 06/01/17 19:39 Dextrose/Sodium Chloride (D5-0.45ns) 1,000 mls @ 100 mls/hr IV .Q10H [facility] Stop: 06/01/17 18:15 Last Admin: 04/06/17 08:26 Dose: 100 mls/hr Cefepime HCl 1 gm/ Sodium (Chloride) 50 mls @ 100 mls/hr IV Q12H [facility] Stop: 06/02/17 12:59 Last Admin: 04/06/17 13:06 Dose: 100 mls/hr Clindamycin Phosphate (Cleocin Pb) 600 mg in 50 mls @ 100 mls/hr IV Q8H [facility] Stop: 06/02/17 13:59 Last Admin: 04/06/17 15:00 Dose: 100 mls/hr Lactobacillus Rhamnosus (Culturelle) 1 each PO DAILY ANH Stop: 06/03/17 08:59 Last Admin: 04/06/17 08:22 Dose: 1 each Lorazepam (Ativan) 1 mg PO Q6H PRN; Protocol PRN Reason: Anxiety/Agitation Stop: 06/01/17 19:39 Magnesium Hydroxide (Milk Of Magnesia) 30 ml PO HS PRN PRN Reason: Constipation Stop: 06/01/17 19:39 Miscellaneous (Probiotic Screen) 1 ea MC PRN PRN PRN Reason: PROTOCOL Stop: 06/02/17 17:23 Ondansetron HCl (Zofran Odt) 4 mg PO Q6H PRN PRN Reason: Nausea / Vomiting Stop: 06/01/17 19:39 - Procedures Procedures: Procedures Procedure Code Date DRAINAGE OF L LOW ARM SUBCU/FASCIA, OPEN APPROACH [id number] 04/02/17 DRAINAGE OF SKIN ABSCESS 12199 04/02/17 Nutritional Asmnt/Malnutr-PDOC - Dietary Evaluation Malnutrition Findings (Please click <Entered> for more info): Nutritional Asmnt/Malnutrition Start: 04/04/17 13: 05 Text: Status: Complete Freq: Document 04/04/17 13:06 GSUN (Rec: 04/04/17 13:25 GSUN [email or web address]) Nutritional Asmnt/Malnutrition Patient General Information Nutritional Screening Consult Diagnosis Sepsis, left forearm cellulitis, leukocytosis, thrombocytosis Pertinent Medical Hx/Surgical Hx Splenectomy, amphetamine abuse , methamphetamine abuse, cannabinoid abuse Subjective Information 36 year old male from home. Spoke to pt sitting outside in courtyard smoking a cigarrete . No nutritional concerns at this time. Pt was NPO during visit for surgery. Pt report UBW 155-165lb, has always been small frame, no recent weight changes, good appetite. Avg PO itnake 100% of meals yesterday. Teeth intact. Ambulatory. Current Diet Order/ Nutrition Support Regular Pertinent Medications D5-0.45ns, Culturelle, MOM, Vancomycin, Zofran Pertinent Labs Reviewed. Nutritional Hx/Data Height 1.85 m Height (Calculated Centimeters) 185.4 Current Weight (lbs) 66.678 kg Weight (Calculated Kilograms) 66.7 Weight (Calculated Grams) 15831.1 [place] Body Weight 184 Recent Weight Change No Weight Status Approriate GI Symptoms Skin Integrity/Comment: Bin 23. Wound care 04/03: right forearm abscess, left erythematous and solitario Current %PO Good (75-100%) Estimated Nutritional Goals BEE in Kcals: Using Current wt Calories/Kcals/Kg CBW 147lb/66.8kg Kcals Calculated 1670-2004kcal (25-30kcla/kg) Protein: Using Current wt Protein Calculated 53-67g (0.8-1g/kg) Fluid: ml 1670-2004ml (1ml/kcal) Nutritional Problem 1. Problem Problem No nutritional problem at this time. Intervention/Recommendation Comments 1. Continue with current diet order. Avg PO intake is adequate. Expected Outcomes/Goals Expected Outcomes/Goals 1. PO intake to meet at least 75% of estimated nutritional needs.
--- NOTE | 2017-04-06 22:48 | Discharge Summary ---
DATE OF DISCHARGE: 04/06/2017 DISCHARGE DIAGNOSES: 1. Sepsis. 2. Left forearm consistent with abscess secondary to Staphylococcus aureus. 3. History of splenectomy. 4. Amphetamine abuse. 5. Methamphetamine abuse. 6. Cannabinoid abuse. HOSPITAL COURSE: The patient is a 36-year-old who presented to ER complaining left forearm abscess. The patient was admitted to Med/Surg unit. The patient was admitted having sepsis, left forearm cellulitis, history of splenectomy, leukocytosis, thrombocytosis, hyponatremia, hyperglycemia, lactic acidosis, amphetamine abuse, methamphetamine abuse and cannabinoid abuse. The patient was admitted to Med/Surg unit. Consultation obtained. Infectious Disease consultation was obtained from Dr. Dionicio Canales who recommended the patient to be placed on empiric coverage with vancomycin, Maxipime and clindamycin. General Surgery consultation was obtained from Dr. Del Toro. During the hospital course the patient underwent left upper extremity arterial ultrasound, which showed mild atherosclerotic vascular disease. No evidence of stenosis. The patient underwent left extremity vascular ultrasound, which was negative for DVT. The patient underwent I and D of the left forearm and placement of Palmer-Rendon drain on 04/02/2017. The patient responded well to IV antibiotics. The patient since then has no further draining from YUMIKO drain. The patient has been cleared by General Surgery for discharge home. Goff culture results on the patient stated only the left forearm cultures showed only Staphylococcus aureus. The patient was discharged home on clindamycin. The patient will be arranged for home health. The patient will follow up with his PCP. [facility]# [id number]
--- NOTE | 2017-04-07 19:37 | Progress Notes ---
DATE: 04/06/2017 SUBJECTIVE: The patient is awake, alert. The patient is on IV antibiotics. The patient received inpatient wound care. OBJECTIVE: VITAL SIGNS: Temperature is 98, pulse 71, blood pressure 128/58, respiratory rate 18, O2 sat 97% on room air. CARDIOVASCULAR: S1 and S2. RESPIRATORY: Clear. GASTROINTESTINAL: Soft. Positive bowel sounds. LABORATORY DATA: Hematology: WBC 10.2, hemoglobin 14.1, hematocrit 42.8, platelet count of 586. 6% eosinophils and 4% basophils. ESR is 25. Chemistry: Sodium 137, potassium 4.0, chloride 103, bicarbonate 29, anion gap 8.7, BUN 10, creatinine 0.6. GFR is more than 60. Glucose of 88, calcium is 9.3. MICROBIOLOGY: Blood culture from 04/02/2017 shows no growth. MRSA screen from 04/02/2017 negative. Left forearm wound culture shows Staphylococcus Aureus. Blood culture from 04/03/2017 shows no growth. Left forearm wound culture from 04/04/2017 pending. ASSESSMENT: 1. Sepsis. 2. Left forearm cellulitis and abscess secondary to Staph aureus. 3. Leukocytosis, resolved. 4. Amphetamine abuse. 5. Cannabinoid abuse. 6. History of splenectomy. PLAN: Continue current medication and treatment. international account manager for discharge planning. JOB# [id number]
== END 2017-04-06 19:17 | disposition home health service (06) | DRG 720 ==
LOC: ER 13:53 → MSI 16:00
PROVIDERS: ADMIT Preventive Medicine Preventive Medicine/Occupational Environmental Medicine; ATTEND Preventive Medicine Preventive Medicine/Occupational Environmental Medicine
PROC: 0J9H00Z Drainage of Left Lower Arm Subcutaneous Tissue and Fascia with Drainage Device, Open Approach (ICD-10-PCS; principal; 2017-04-04)
DX: A41.9 Sepsis, unspecified organism (principal); E87.1 Hypo-osmolality and hyponatremia; L03.114 Cellulitis of left upper limb; F15.10 Other stimulant abuse, uncomplicated; F12.10 Cannabis abuse, uncomplicated; R73.9 Hyperglycemia, unspecified; F17.210 Nicotine dependence, cigarettes, uncomplicated; D47.3 Essential (hemorrhagic) thrombocythemia; W57.XXXA Bitten or stung by nonvenomous insect and other nonvenomous arthropods, initial encounter; I70.202 Unspecified atherosclerosis of native arteries of extremities, left leg; L02.414 Cutaneous abscess of left upper limb; B95.61 Methicillin susceptible Staphylococcus aureus infection as the cause of diseases classified elsewhere; Y93.89 Activity, other specified; Y92.89 Other specified places as the place of occurrence of the external cause; Y99.8 Other external cause status; Z90.81 Acquired absence of spleen
CPT/HCPCS: 36415-UA; 71010-TC; 73080-TC-LT; 80048-TC; 80053-TC; 80202-TC; 80307; 81001-TC; 83605; 84443-TC; 84484-TC; 85007-TC; 85025-TC; 85027-TC; 85652-TC; 86141-TC; 86592-TC; 87070-90; 87075-90; 87205-90; 93931-LT-TC; 97971-TC-LT; J0692; J0696; J2001; J2250; J2704; J3370; J7030; X6206; Z7610

== ENCOUNTER 2017-04-09 19:33 | Emergency (ER) | payer MEDICAID ==
--- NOTE | 2017-04-09 21:17 | ED Physician Chart ---
ED Chief Complaint/HPI - Patient Information Date Seen:: 04/09/17 Time Seen:: 20:12 Chief Complaint:: LEFT ARM WOUND CHECK History of Present Illness:: THIS IS A 36 YO MALE WHO IS HERE FOR FOLLOW UP ON AN ID WOUND THAT HE RECEIVED WHILE HOSPITALIZE IN THE HOSPITAL HERE. THE HOME CARE WAS ARRANGED WHEN HE WAS DISCHARGED AND HE HOME VISIT NURSE NEVER SHOWED UP. THE PATIENT STATES THAT HE HAS NOT BEEN TAKING HIS ANTIBIOTICS. Allergies:: Allergies Allergy/AdvReac Type Severity Reaction Status Date / Time No Known Allergies Allergy Verified 04/09/17 20:13 Vitals:: Vital Signs - 8 hr 04/09/17 20:00 Temp 98.7 F HR 110 RR 16 BP 143/90 O2 Sat % 98 Historian:: Patient Review:: Nurse's Note Reviewed ED Review of Systems - Review of Systems General/Constitutional: No fever, No chills, No weight loss, No weakness, No diaphoresis, No edema, No loss of appetite Skin: No skin lesions, No rash, No bruising Head: No headache, No light-headedness Eyes: No loss of vision, No pain, No diplopia ENT: No earache, No nasal drainage, No sore throat, No tinnitus Neck: No neck pain, No swelling, No thyromegaly, No stiffness, No mass noted Cardio Vascular: No chest pain, No palpitations, No PND, No orthopnea, No edema Pulmonary: No SOB, No cough, No sputum, No wheezing GI: No nausea, No vomiting, No diarrhea, No pain, No melena, No hematochezia, No constipation, No hematemesis G/U: No dysuria, No frequency, No hematuria Musculoskeletal: No bone or joint pain, No back pain, No muscle pain, Other ( LEFT FOREARM ABCESS RESOLVING) Endocrine: No polyuria, No polydipsia Psychiatric: No prior psych history, No depression, No anxiety, No suicidal ideation Hematopoietic: No bruising, No lymphadenopathy Allergic/Immuno: No urticaria, No angioedema Neurological: No syncope, No focal symptoms, No weakness, No paresthesia, No headache, No seizure, No dizziness, No confusion, No vertigo ED Past Medical History - Past Medical History Past Medical History: Other (DRUG ABUSER) Family History: None Social History: Non Smoker, No Alcohol, Illicit Drug Use, Single Surgical History: None Psychiatricy History: None Medication: Reviewed Family Medical History - Family Member Mother History Unknown: Yes ED Physical Exam - Physical Examination General/Constitutional: Awake, Well-developed, well-nourished, Alert, No distress, GCS 15, Non-toxic appearing, Ambulatory Head: Atraumatic Eyes: Lids, conjuctiva normal, PERRL, EOMI Skin: Nl inspection, No rash, No skin lesions, No ecchymosis, Well hydrated, No lymphadenopathy ENMT: External ears, nose nl, Nasal exam nl, Lips, teeth, gums nl Neck: Nontender, Full ROM w/o pain, No JVD, No nuchal rigidity, No bruit, No mass, No stridor Respiratory: Nl effort/Exclusion, Clear to Auscultation, No Wheeze/Rhonchi/Rales Cardio Vascular: RRR, No murmur, gallop, rubs, NL S1 S2 GI: No tenderness/rebounding/guarding, No organomegaly, No hernia, Normal BS's, Nondistended, No mass/bruits, No McBurney tenderness : No CVA tenderness Extremities: No tenderness or effusion, Full ROM, normal strength in all extremities, No edema, Normal digits & nails Other Extremities comments:: A DRAIN IS NOTED INTACT AND DRAINING RED FLUID OUT OF THE WOUND SITE IN THE LEFT FOREARM. THE ARM SWELLING DOWN CONSIDERABLE. THE FOREARM IS NOT TENDER BEFORE. THE ARM IS NOT HOT OR RED. Neuro/Psych: Alert/oriented, DTR's symmetric, Normal sensory exam, Normal motor strength, Judgement/insight normal, Mood normal, Normal gait, No focal deficits Misc: normal gait, Normal back, No paraspinal tenderness ED Assessment - Assessment General Assessment: RESOLVING CELLULITIS OF THE RIGHT FOREARM. ED Septic Shock - . Is Septic Shock (SBP<90, OR Lactate>4 mmol\L) present?: No - <6hrs of presentation: Vital Signs: Vital Signs - 8 hr 04/09/17 20:00 Temp 98.7 F HR 110 RR 16 BP 143/90 O2 Sat % 98 ED Reassessment (Disposition) - Reassessment Reassessment Condition:: Improved - Diagnosis Diagnosis:: RESOLVING CELLULITIS OF THE LEFT FOREARM - Aftercare/Follow up Instructions Aftercare/Follow-Up Instructions:: Counseled pt regarding lab results/diagnosis & need follow up, Refer to Discharge Instructions, Counseled pt & family regarding lab results/diagnosis & need follow up - Patient Disposition Discharge/Transfer:: Home Condition at Disposition:: Improved ED Discharge Plan - Patient Disposition Admit/Discharge/Transfer: PT DISCHARGED HOME Condition at Disposition: Improved
== END 2017-04-09 21:30 | disposition home or self-care (01) ==
LOC: ER 19:33
DX: L03.113 Cellulitis of right upper limb (principal)
CPT/HCPCS: 99283; 96372; J0696; J2001; Z7502

== ENCOUNTER 2017-04-14 20:21 | Emergency (ER) | payer MEDICAID ==
--- NOTE | 2017-04-14 20:45 | ED Physician Chart ---
ED Chief Complaint/HPI - Patient Information Date Seen:: 04/14/17 Time Seen:: 20:30 Chief Complaint:: wound check History of Present Illness:: this patient was admitted to this hospital and had an i and d with a drain placed in the left forearm. he has been here twice for a wound check and told that he should follow up with Dr. Del Toro the surgeon. He states that almost all the swelling is gone and the wound looks ok. Allergies:: Allergies Allergy/AdvReac Type Severity Reaction Status Date / Time No Known Allergies Allergy Verified 04/09/17 20:13 Vitals:: Vital Signs - 8 hr 04/14/17 20:27 Temp 99.0 F HR 82 RR 18 BP 139/82 O2 Sat % 97 Historian:: Patient Review:: Nurse's Note Reviewed ED Review of Systems - Review of Systems General/Constitutional: No fever, No chills, No weight loss, No weakness, No diaphoresis, No edema, No loss of appetite Skin: No skin lesions, No rash, No bruising Head: No headache, No light-headedness Eyes: No loss of vision, No pain, No diplopia ENT: No earache, No nasal drainage, No sore throat, No tinnitus Neck: No neck pain, No swelling, No thyromegaly, No stiffness, No mass noted Cardio Vascular: No chest pain, No palpitations, No PND, No orthopnea, No edema Pulmonary: No SOB, No cough, No sputum, No wheezing GI: No nausea, No vomiting, No diarrhea, No pain, No melena, No hematochezia, No constipation, No hematemesis G/U: No dysuria, No frequency, No hematuria Musculoskeletal: No bone or joint pain, No back pain, No muscle pain, Other ( left forearm wound resolving) Endocrine: No polyuria, No polydipsia Psychiatric: No prior psych history, No depression, No anxiety, No suicidal ideation Hematopoietic: No bruising, No lymphadenopathy Allergic/Immuno: No urticaria, No angioedema Neurological: No syncope, No focal symptoms, No weakness, No paresthesia, No headache, No seizure, No dizziness, No confusion, No vertigo ED Past Medical History - Past Medical History Obtainable: Yes Past Medical History: Other (drug abuse) Family History: None Social History: Smoker, Alcohol, Illicit Drug Use, Single Surgical History: other (splenectomy) Family Medical History - Family Member Mother History Unknown: Yes ED Physical Exam - Physical Examination General/Constitutional: Awake, Well-developed, well-nourished, Alert, No distress, GCS 15, Non-toxic appearing, Ambulatory Head: Atraumatic Eyes: Lids, conjuctiva normal, PERRL, EOMI Skin: Nl inspection, No rash, No skin lesions, No ecchymosis, Well hydrated, No lymphadenopathy ENMT: External ears, nose nl, Nasal exam nl, Lips, teeth, gums nl Neck: Nontender, Full ROM w/o pain, No JVD, No nuchal rigidity, No bruit, No mass, No stridor Respiratory: Nl effort/Exclusion, Clear to Auscultation, No Wheeze/Rhonchi/Rales Cardio Vascular: RRR, No murmur, gallop, rubs, NL S1 S2 GI: No tenderness/rebounding/guarding, No organomegaly, No hernia, Normal BS's, Nondistended, No mass/bruits, No McBurney tenderness : No CVA tenderness Extremities: No tenderness or effusion, Full ROM, normal strength in all extremities, No edema, Normal digits & nails Other Extremities comments:: the left forearm is not as swollen or red as before with much improvement. the drain is still in place and draining nicely. Neuro/Psych: Alert/oriented, DTR's symmetric, Normal sensory exam, Normal motor strength, Judgement/insight normal, Mood normal, Normal gait, No focal deficits Misc: normal gait, Normal back, No paraspinal tenderness ED Assessment - Assessment General Assessment: wound check ED Septic Shock - . Is Septic Shock (SBP<90, OR Lactate>4 mmol\L) present?: No - <6hrs of presentation: Vital Signs: Vital Signs - 8 hr 04/14/17 20:27 Temp 99.0 F HR 82 RR 18 BP 139/82 O2 Sat % 97 ED Reassessment (Disposition) - Reassessment Reassessment Condition:: Unchanged - Diagnosis Diagnosis:: wound check left forearm - Aftercare/Follow up Instructions Aftercare/Follow-Up Instructions:: Counseled pt regarding lab results/diagnosis & need follow up, Refer to Discharge Instructions, Counseled pt & family regarding lab results/diagnosis & need follow up - Patient Disposition Discharge/Transfer:: Home Accepting Physician:: to see Dr. Alverto johnson ED Discharge Plan - Patient Disposition Instructions: Wound Check Additional Instructions: follow up with Dr. Alejandro JOHNSON [address] [place] [address], [address] [place] [id number]
== END 2017-04-14 20:45 | disposition home or self-care (01) ==
LOC: ER 20:21
DX: Z48.00 Encounter for change or removal of nonsurgical wound dressing (principal); F17.200 Nicotine dependence, unspecified, uncomplicated